=== PATIENT | female | born 1970 | race Caucasian/White ===

== ENCOUNTER 2016-07-03 19:31 | Emergency (ER) | payer SELFPAY ==
[2016-07-03 19:48] VITALS: TEMP 97.7; BMI 23.2
--- NOTE | 2016-07-03 20:23 | PDOC ---
History of Present Illness - General Chief Complaint: Psychiatric Stated Complaint: DETOX Time Seen by Provider: 07/03/16 19:48 History Source: Patient Exam Limitations: No Limitations Past History - Past Medical History Allergies/Adverse Reactions: Allergies No Known Allergies Allergy (Verified 07/03/16 19:43) Home Medications: Ambulatory Orders NK [No Known Home Medication] 07/03/16 - Social History Smoking Status: Former smoker *Review of Systems - Review of Systems Able to Perform ROS?: Yes Comments:: 07/03/16 20:21 CONSTITUTIONAL: Absent: fever, chills, diaphoresis, generalized weakness, malaise, loss of appetite HEENT: Absent: rhinorrhea, nasal congestion, throat pain, throat swelling, difficulty swallowing, mouth swelling, ear pain, eye pain, visual Changes CARDIOVASCULAR: Absent: chest pain, loss of consciousness, palpitations, irregular heart rate, peripheral edema RESPIRATORY: Absent: cough, shortness of breath, dyspnea with exertion, orthopnea, wheezing, stridor, hemoptysis GASTROINTESTINAL: Absent: abdominal pain, abdominal distension, nausea, vomiting, diarrhea, constipation, melena, hematochezia GENITOURINARY: Absent: dysuria, frequency, urgency, hesitancy, hematuria, flank pain, genital pain MUSCULOSKELETAL: Absent: myalgia, arthralgia, joint swelling SKIN: Absent: rash, itching, pallor HEMATOLOGIC/IMMUNOLOGIC: Absent: easy bleeding, easy bruising, lymphadenopathy, frequent infections ENDOCRINE: Absent: unexplained weight gain, unexplained weight loss, heat intolerance, cold intolerance NEUROLOGIC: Absent: headache, focal weakness or paresthesias, dizziness, unsteady gait, seizure, mental status changes, bladder or bowel incontinence PSYCHIATRIC: Absent: anxiety, depression, suicidal or homicidal ideation, hallucinations. *Physical Exam - Vital Signs Last Vital Signs Temp Pulse Resp BP Pulse Ox 97.7 F 62 19 114/76 93 L 07/03/16 19:39 07/03/16 19:39 07/03/16 19:39 07/03/16 19:39 07/03/16 19:39 - Physical Exam Comments: 07/03/16 20:21 GENERAL: Well developed, well nourished. Awake and alert. No acute distress. HEENT: Normocephalic, atraumatic. PERRLA, EOMI. No conjunctival pallor. Sclera are non- icteric. Moist mucous membranes. Oropharynx is clear. NECK: Supple. Full ROM. No JVD. Carotid pulses 2+ and symmetric, without bruits. No thyromegaly. No lymphadenopathy. CARDIOVASCULAR: Regular rate and rhythm. No murmurs, rubs, or gallops. Distal pulses are 2+ and symmetric. PULMONARY: No evidence of respiratory distress. Lungs clear to auscultation bilaterally. No wheezing, rales or rhonchi. ABDOMINAL: Soft. Non-tender. Non-distended. No rebound or guarding. No organomegaly. Normoactive bowel sounds. MUSCULOSKELETAL Normal range of motion at all joints. No bony deformities or tenderness. No CVA tenderness. EXTREMITIES: No cyanosis. No clubbing. No edema. No calf tenderness. SKIN: Warm and dry. Normal capillary refill. No rashes. No jaundice. NEUROLOGICAL: Alert, awake, appropriate. Cranial nerves 2-12 intact. No deficits to light touch and temperature in face, upper extremities and lower extremities. No motor deficits in the in face, upper extremities and lower extremities. Normoreflexic in the upper and lower extremities. Normal speech. Toes are down- going bilaterally. Gait is normal without ataxia. PSYCHIATRIC: Cooperative. Good eye contact. Appropriate mood and affect. Plan - Order(s) Order(s): Orders Medication Instructions Recorded NK [No Known Home Medication] 07/03/16 - Laboratory CBC & Chemistry Diagram: 07/03/16 20:44 07/03/16 20:40 *DC/Admit/Observation/Transfer Diagnosis at time of Disposition: Narcotic abuse - Discharge Dispostion Disposition: I.P. ALCOHOL/SUBS ABUSE REHAB Condition at time of disposition: Stable - Patient Instructions Printed Discharge Instructions: DI for Opioid Addiction Progress Note - Progress Note Progress Note: 45-year-old female with a history of IVDA presents to the emergency department requesting for heroin detox. Patient states she usually uses a bundle of heroin per day (10 bags=1 bundle). Last use: IVDA/heroin/last evening. Patient denies any headache, dizziness, lightheadedness, visual disturbance, blurry vision, neck pains, back pains, chest pain, palpitation, shortness of breath, abdominal pains, urinary symptoms. 2215hrs: Spoke to SWEE[facility]O asst, states to have security bring pt over to [email or web address]
--- NOTE | 2016-07-03 20:36 | PDOC ---
[id number] 93 L 07/03/16 19:39 07/03/16 19:39 07/03/16 19:39 07/03/16 19:39 07/03/16 19:39 ED Treatment Course - LABORATORY CBC & Chemistry Diagram: 07/03/16 20:44 07/03/16 20:40 Medical Decision Making - Medical Decision Making 07/03/16 20:35 Pt seen by the Advanced Practice Provider under my direct supervision Ancillary studies reviewed I agree with plan as outlined by the Advanced Practice Provider SHANDA Lopez *DC/Admit/Observation/Transfer Diagnosis at time of Disposition: Narcotic abuse - Discharge Dispostion Disposition: I.P. ALCOHOL/SUBS ABUSE REHAB Condition at time of disposition: Stable - Patient Instructions Printed Discharge Instructions: DI for Opioid Addiction
[2016-07-03 21:03] LABS: URINE APPEARANCE SLCLOUDY; URINE BILIRUBIN NEGATIVE (NEGATIVE); URINE BLOOD NEGATIVE (NEGATIVE); URINE COLOR AMBER; URINE GLUCOSE (UA) NEGATIVE (NEGATIVE); URINE KETONE TRACE (NEGATIVE); URINE LEUK ESTERASE NEGATIVE (NEGATIVE); URINE NITRITE NEGATIVE (NEGATIVE); URINE UROBILINOGEN 4.0 E.U/dl E.U./dl (0.2-1.0)
[2016-07-03 21:03] LABS: BASOPHIL 0.5 % (0-2.0); EOSINOPHIL 1.1 % (0-4.5); MCH 24.7 pg (25.7-33.7); MCHC 32.4 g/dl (32.0-36.0); MEAN CELL VOLUME 76.3 fl (80-96); MEAN PLT VOLUME 7.9 fl (7.5-11.1); NEUTROPHILS 74.8 % (42.8-82.8); PLATELET COUNT 184 K/MM3 (134-434); RDW 15.3 % (11.6-15.6); WHITE BLOOD COUNT 5.1 K/mm3 (4.0-10.0)
[2016-07-03 21:05] LABS: URINE PROTEIN 1+ (NEGATIVE)
[2016-07-03 21:06] LABS: URINE MUCUS MANY; URINE RBC 2 /hpf (0-3); URINE WBC 3 /hpf (3-5)
[2016-07-03 21:22] LABS: URINE MARIJUANA THC NEGATIVE ng/ml (CUTOFF=50)
[2016-07-03 21:48] LABS: ALBUMIN 3.2 g/dl (3.4-5.0); ANION GAP 7 (8-16); BILIRUBIN,TOTAL 0.3 mg/dL (0.2-1.0); CALCIUM 8.9 mg/dL (8.5-10.1); CO2 29 mmol/L (21-32); CREATININE 0.7 mg/dL (0.55-1.02); GLUCOSE,RANDOM 105 mg/dL (74-106); SGOT/AST 22 U/L (15-37); SGPT/ALT 25 U/L (12-78); TOT PROT 7.5 g/dl (6.4-8.2)
[2016-07-03 21:49] LABS: ALK PHOS 72 U/L (45-117)
[2016-07-03 22:12] VITALS: BP 116/69; PULSE 68
--- NOTE | 2016-07-05 21:48 | EKG ---
Test Reason : Blood Pressure : / mmHG Vent. Rate : 066 BPM Atrial Rate : 066 BPM P-R Int : 168 ms QRS Dur : 078 ms QT Int : 414 ms P-R-T Axes : 072 058 049 degrees QTc Int : 434 ms NORMAL SINUS RHYTHM NORMAL ECG NO PREVIOUS ECGS AVAILABLE Confirmed by INGRID HARMAN MD ([id number]) on 07/05/2016 9:47:46 PM Referred By: Confirmed By:INGRID HARMAN MD
== END 2016-07-03 22:46 | disposition other institution (70) ==
LOC: JER 19:31
DX: F11.20 Opioid dependence, uncomplicated (principal)
CPT/HCPCS: 36415; 80053; 80307; 81003; 81015; 84703; 85025; 93005; 93010; 99282-25

== ENCOUNTER 2016-07-03 23:42 | Inpatient (IN) | payer SELFPAY ==
--- NOTE | 2016-07-04 00:39 | HP ---
COWS - Scale Resting Pulse: 0= [place] 80 or Below Sweatin=Flushed/Facial Moisture Restless Observation: 1= Difficult to Sit Still Pupil Size: 0= Normal to Room Light Bone or Joint Aches: 1= Mild Discomfort Runny Nose/ Eye Tearin= Runny Nose/Eyes GI Upset > 30mins: 2= Nausea/Diarrhea Tremor Observation: 1= Tremor [place], Not Seen Yawning Observation: 2= >3x During Session Anxiety or Irritability: 1=Feels Anxious/Irritable Goose Flesh Skin: 3=Piloerection COWS Score: 15 Admission ROS S - HPI Chief Complaint: WITHDRAWAL SYMPTOMS Allergies/Adverse Reactions: Allergies Allergy/AdvReac Type Severity Reaction Status Date / Time No Known Allergies Allergy Verified 07/03/16 19:43 History of Present Illness: 45 Y.O. FEMALE WITH AN EXTENSIVE HISTORY OF DRUG DEPENDENCE IS SEEKING DETOX. SHE PREVIOUSLY COMPLETED DETOX AND REHAB At ANOTHER FACILITY. SHE REPORTS SHE DOES NOT HAVE A SIGNIFICANT PERIOD OF SOBRIETY. Exam Limitations: No Limitations - Ebola screening Have you traveled outside of the country in the last 21 days: No (N) Have you had contact with anyone from an Ebola affected area: No Do you have a fever: No - Review of Systems Constitutional: Chills, Loss of Appetite, Night Sweats, Changes in sleep EENT: reports: Tearing Respiratory: reports: Shortness of Breath Cardiac: reports: No Symptoms Reported GI: reports: No Symptoms Reported : reports: No Symptoms Reported Musculoskeletal: reports: Joint Pain Integumentary: reports: Other (TRACK [place]) Neuro: reports: Tremors Endocrine: reports: No Symptoms Reported Hematology: reports: No Symptoms Reported Psychiatric: reports: Orientated x3 Other Systems: Reviewed and Negative Patient History - Patient Medical History Hx Anemia: No Hx Asthma: Yes Hx Chronic Obstructive Pulmonary Disease (COPD): No Hx Cancer: No Hx Cardiac Disorders: No Hx Congestive Heart Failure: No Hx Hypertension: No Hx Hypercholesterolemia: No Hx Pacemaker: No HX Cerebrovascular Accident: No Hx Seizures: No Hx Dementia: No Hx Diabetes: No Hx Gastrointestinal Disorders: No Hx Liver Disease: No Hx Genitourinary Disorders: No Hx Sexually Transmitted Disorders: No Hx Renal Disease (ESRD): No Hx Thyroid Disease: No Hx Human Immunodeficiency Virus (HIV): No Hx Hepatitis C: No Hx Depression: Yes Hx Suicide Attempt: No Hx Bipolar Disorder: Yes Hx Schizophrenia: No - Patient Surgical History Past Surgical History: No - PPD History Previous Implant?: No Documented Results: Negative w/o proof PPD to be Administered?: Yes - Reproductive History Patient is a Female of Child Bearing Age (11 -55 yrs old): Yes Last Menstrual Period: 06/23/16 Patient : No - Smoking Cessation Smoking history: Former smoker Have you smoked in the past 12 months: No Initiated information on smoking cessation: Yes 'Breaking Loose' booklet given: 07/04/16 - Substance & Tx. History Hx Alcohol Use: No Hx Substance Use: Yes Substance Use Type: Cocaine, Opiates Hx Substance Use Treatment: Yes (DETOX AND REHAB ) - Substances Abused Heroin Route: Injection Frequency: Daily Amount used: 10 BAGS Age of first use: 43 Date of Last Use: 07/03/16 Cocaine Route: Injection Frequency: 3-6 times per week Amount used: 1/2 BAG Age of first use: 23 Date of Last Use: 07/03/16 Family Disease History - Family Disease History Family Disease History: [place]: Grandparent, Other: Father (ETOH DEPENDENCE ), Brother (HEROIN DEPENDENCE ), Sister (ETOH DEPENDENCE ) Admission Physical Exam BHS - Vital Signs Vital Signs: Last Vital Signs Temp Pulse Resp BP Pulse Ox 97.2 F L 73 16 93/69 07/04/16 02:03 07/04/16 02:03 07/04/16 02:03 07/04/16 02:03 - Physical General Appearance: Yes: Disheveled, Tremorous, Irritable, Anxious HEENTM: Yes: Hearing grossly Normal, Normocephalic, Normal Voice Respiratory: Yes: Chest Non-Tender, Lungs Clear, Normal Breath Sounds, No Respiratory Distress, No Accessory Muscle Use Neck: Yes: No masses,lesions,Nodules, Trachea in good position Breast: Yes: Breast Exam Deferred Cardiology: Yes: Regular Rhythm, Regular Rate, S1, S2 Abdominal: Yes: Normal Bowel Sounds, Non Tender, Flat, Soft Genitourinary: Yes: Within Normal Limits Back: Yes: Normal Inspection Musculoskeletal: Yes: Gait Steady Extremities: Yes: Normal Inspection, Normal Range of Motion, Non-Tender Neurological: Yes: Fully Oriented, Alert, Normal Response Integumentary: Yes: Track [place] Lymphatic: Yes: Within Normal Limits - Diagnostic (1) Opioid dependence with withdrawal Current Visit: Yes Status: Chronic (2) Cocaine dependence, uncomplicated Current Visit: Yes Status: Chronic (3) Asthma Current Visit: Yes Status: Chronic Cleared for Admission S - Detox or Rehab [facility] Level of Care: Medically Managed Detox Regimen/Protocol: Methadone S Breath Alcohol Content Breath Alcohol Content: 0 Vital Signs - Vital Signs Vital Signs Refused: No Temperature: 97.2 F Temperature Source: Oral Pulse Rate: 73 Respiratory Rate: 16 Blood Pressure: 93/69 BP Location: Left Arm Blood Pressure Position: Sitting - Height Height: 5 ft 1 in - Weight Weight: 124 lb Weight Measurement Method: Standing Scale Body Mass Index (BMI): 23.4 Urine Pregancy Test - Test Device Lot Number: [id number] Expiration Date: 11/30/17 - Control Horizontal Line in Upper Control Window?: Yes - Result Urine Test Results: Negative- NO Line Present Urine Drug Screen - Test Device Lot Number: [id number] Expiration Date: 12/31/16 - Control Is Test Valid: Yes - Results Urine Drug Screen Results: ANABELLE-Cocaine, OXY-Oxycodone
[2016-07-04 00:51] VITALS: BMI 23.4
[2016-07-04] MEDS ORDERED: guaiFENesin/D-METHORPHAN HB 10 ML UNIT-DOSE CUPS PO PRN (01:11)
[2016-07-04] MEDS ORDERED: MENTHOL/PHENOL 1 EACH UD MM PRN (01:11)
[2016-07-04] MEDS ORDERED: MAGNESIUM CITRATE 300 ML BOTTLE PO PRN (01:11)
[2016-07-04] MEDS ORDERED: ACETAMINOPHEN 325 MG TABLET (FP) PO PRN (01:11)
[2016-07-04] MEDS ORDERED: P-EPHED 60MG/TRIPROLIDI 2.5MG TABLET PO PRN (01:11)
[2016-07-04] MEDS ORDERED: METHADONE HCL 10 MG TABLET (FOR DETOX USE ONLY) PO ONE ×3 (01:11→23:00)
[2016-07-04] MEDS ORDERED: IBUPROFEN 400 MG TABLET (FP) PO PRN (01:11)
[2016-07-04] MEDS ORDERED: MAG HYDROX/AL HYDROX/SIMETH 30 ML UNIT-DOSE CUP PO PRN (01:11)
[2016-07-04] MEDS ORDERED: LOPERAMIDE HCL 2 MG CAPSULE PO PRN (01:11)
[2016-07-04] MEDS ORDERED: MAGNESIUM HYDROX 2400MG/30ML ORAL SUSPENSION 30 ML CUP PO PRN (01:11)
[2016-07-04] MEDS ORDERED: ALBUTEROL SO4 6.7 GM HFA INHALER IH PRN (01:13)
--- NOTE | 2016-07-04 08:45 | PN ---
BHS COWS - Scale Resting Pulse: 0= [place] 80 or Below Sweatin=Flushed/Facial Moisture Restless Observation: 3= Extraneous Movement Pupil Size: 1= Pupils >than Normal Bone or Joint Aches: 2= Severe Diffuse Aches Runny Nose/ Eye Tearin= Runny Nose/Eyes GI Upset > 30mins: 3= Vomiting/Diarrhea Tremor Observation of Outstretched Hands: 2= Slight Tremor Visible Yawning Observation: 1= 1-2x During Session Anxiety or Irritability: 2=Irritable/Anxious Goose Flesh Skin: 0=Smooth Skin COWS Score: 18 BHS Progress Note (SOAP) Subjective: ALERT,IRRITABLE,ANXIOUS,SWEATING,PAIN IN THE BODY AND BACK,TREMOR,INTERRUPTED SLEEP Objective: 07/04/16 08:44 Vital Signs Temperature 97.6 F 07/04/16 06:18 Pulse Rate 77 07/04/16 06:18 Respiratory Rate 18 07/04/16 06:18 Blood Pressure 112/63 07/04/16 06:18 O2 Sat by Pulse Oximetry (%) 07/04/16 08:44 EKG NSR WITH SINUS ARRHYTHMIA LABS PENDING Assessment: 07/04/16 08:45 WITHDRAWAL SYMPTOM Plan: CONTINUE DETOX
[2016-07-04] MEDS: diazePAM 5 MG TABLET PO PRN (10:01)
[2016-07-04] MEDS: PRENATAL VITAMINS W/ FOLIC ACID TABLET (FP) PO SCH (10:01)
[2016-07-04 17:41] LABS: URINE APPEARANCE SLCLOUDY; URINE BLOOD NEGATIVE (NEGATIVE); URINE COLOR AMBER; URINE GLUCOSE (UA) NEGATIVE (NEGATIVE); URINE KETONE NEGATIVE (NEGATIVE); URINE LEUK ESTERASE NEGATIVE (NEGATIVE); URINE NITRITE NEGATIVE (NEGATIVE); URINE UROBILINOGEN 4.0 E.U/dl E.U./dl (0.2-1.0)
[2016-07-04 17:50] LABS: URINE PROTEIN 1+ (NEGATIVE)
[2016-07-04 18:10] LABS: CALCIUM OXALATE CRYSTALS FEW /hpf (NONE SEEN); URINE MUCUS MANY; URINE RBC 3 /hpf (0-3); URINE WBC 3 /hpf (3-5)
[2016-07-04] MEDS: hydrOXYzine PAMOATE 50 MG CAPSULE (FP) PO PRN (22:08)
[2016-07-04] MEDS: THIAMINE HCL 100 MG TABLET (FP) PO SCH (22:09)
--- NOTE | 2016-07-05 09:27 | PN ---
S COWS - Scale Resting Pulse: 0= [place] 80 or Below Sweatin=Flushed/Facial Moisture Restless Observation: 3= Extraneous Movement Pupil Size: 1= Pupils >than Normal Bone or Joint Aches: 2= Severe Diffuse Aches Runny Nose/ Eye Tearin= Runny Nose/Eyes GI Upset > 30mins: 2= Nausea/Diarrhea Tremor Observation of Outstretched Hands: 2= Slight Tremor Visible Yawning Observation: 1= 1-2x During Session Anxiety or Irritability: 2=Irritable/Anxious Goose Flesh Skin: 0=Smooth Skin COWS Score: 17 S Progress Note (SOAP) Subjective: ALERT,IRRITABLE,ANXIOUS,INTERRUPTED SLEEP,PAIN IN THE BODY AND BACK Objective: 07/05/16 09:26 Vital Signs Temperature 97.1 F L 07/05/16 06:25 Pulse Rate 74 07/05/16 06:25 Respiratory Rate 18 07/05/16 06:25 Blood Pressure 104/89 07/05/16 06:25 O2 Sat by Pulse Oximetry (%) Laboratory Last Values Urine Color [place] 07/04/16 Unknown Urine Appearance Slcloudy 07/04/16 Unknown Urine pH 6.0 (5.0-8.0) 07/04/16 Unknown Ur Specific [place] 1.027 (1.001-1.035) 07/04/16 Unknown Urine Protein 1+ (NEGATIVE) H 07/04/16 Unknown Urine Glucose (UA) Negative (NEGATIVE) 07/04/16 Unknown Urine Ketones Negative (NEGATIVE) 07/04/16 Unknown Urine Blood Negative (NEGATIVE) 07/04/16 Unknown Urine Nitrite Negative (NEGATIVE) 07/04/16 Unknown Urine Bilirubin 2.0 (NEGATIVE) 07/04/16 Unknown Urine Urobilinogen 4.0 e.u/dl E.U./dl (0.2-1.0) H 07/04/16 Unknown Ur Leukocyte Esterase Negative (NEGATIVE) 07/04/16 Unknown Urine RBC 3 /hpf (0-3) 07/04/16 Unknown Urine WBC 3 /hpf (3-5) 07/04/16 Unknown Ur Epithelial Cells Moderate /hpf (FEW) 07/04/16 Unknown Calcium Oxalate Crystal Few /hpf (NONE SEEN) 07/04/16 Unknown Urine Mucus Many 07/04/16 Unknown LABS PENDING Assessment: 07/05/16 09:27 WITHDRAWAL SYMPTOM Plan: CONTINUE DETOX
[2016-07-05] MEDS ORDERED: METHADONE HCL 10 MG TABLET (FOR DETOX USE ONLY) PO ONE (10:00)
[2016-07-05 10:19] LABS: MCH 24.8 pg (25.7-33.7); MCHC 32.5 g/dl (32.0-36.0); MEAN CELL VOLUME 76.3 fl (80-96); MEAN PLT VOLUME 8.1 fl (7.5-11.1); PLATELET COUNT 206 K/MM3 (134-434); RDW 15.9 % (11.6-15.6); WHITE BLOOD COUNT 4.8 K/mm3 (4.0-10.0)
[2016-07-05] MEDS: PRENATAL VITAMINS W/ FOLIC ACID TABLET (FP) PO SCH (10:22)
[2016-07-05] MEDS: diazePAM 5 MG TABLET PO PRN ×2 (10:23→22:05)
[2016-07-05 10:52] LABS: ALBUMIN 3.2 g/dl (3.4-5.0); ALK PHOS 66 U/L (45-117); ANION GAP 10 (8-16); BILIRUBIN,TOTAL 0.3 mg/dL (0.2-1.0); CALCIUM 9.2 mg/dL (8.5-10.1); CO2 27 mmol/L (21-32); CREATININE 0.7 mg/dL (0.55-1.02); GLUCOSE,RANDOM 99 mg/dL (74-106); SGOT/AST 25 U/L (15-37); SGPT/ALT 23 U/L (12-78); TOT PROT 7.2 g/dl (6.4-8.2)
[2016-07-05] MEDS: THIAMINE HCL 100 MG TABLET (FP) PO SCH (22:04)
--- NOTE | 2016-07-05 22:39 | EKG ---
Test Reason : Blood Pressure : / mmHG Vent. Rate : 062 BPM Atrial Rate : 062 BPM P-R Int : 178 ms QRS Dur : 080 ms QT Int : 416 ms P-R-T Axes : 075 070 057 degrees QTc Int : 422 ms NORMAL SINUS RHYTHM WITH SINUS ARRHYTHMIA POSSIBLE LEFT ATRIAL ENLARGEMENT BORDERLINE ECG WHEN COMPARED WITH ECG OF 03-JUL-2016 21:03, NO SIGNIFICANT CHANGE WAS FOUND Confirmed by KIMANI CASTELLANO, INGRID ([id number]) on 07/05/2016 10:38:55 PM Referred By: Confirmed By:INGRID HARMAN MD
[2016-07-05] MEDS: diphenhydrAMINE HCL 50 MG CAPSULE PO PRN (23:54)
[2016-07-06] MEDS: diphenhydrAMINE HCL 50 MG CAPSULE PO PRN ×2 (01:03→22:33)
--- NOTE | 2016-07-06 09:45 | CONSULT ---
[facility] Psychiatric Consult - Data Date of interview: 07/06/16 Admission source: [facility] Identifying data: This is 45 years old female with no psychiatric hospitalization history intoxzuicated with: Cocaine amd Heroin Substance Abuse History: - Smoking Cessation. Smoking history: Former smoker. Have you smoked in the past 12 months: No. Initiated information on smoking cessation: Yes. 'Breaking Loose' booklet given: 07/04/16. - Substance & Tx. History. Hx Alcohol Use: No. Hx Substance Use: Yes. Substance Use Type: Cocaine, Opiates. Hx Substance Use Treatment: Yes (DETOX AND REHAB ). - Substances Abused. Heroin. Route: Injection. Frequency: Daily. Amount used: 10 BAGS. Age of first use: 43. Date of Last Use: 07/03/16. Cocaine. Route: Injection. Frequency: 3-6 times per week. Amount used: 1/2 BAG. Age of first use: 23. Date of Last Use: 07/03/16 Medical History: Asthma Psychiatric History: Patient reports history [id number] depression and anxiety, reports insomnia,m reports good response on Seroquel 100mg po qhs prior Physical/Sexual Abuse/Trauma History: Denies Additional Comment: Seroquel 100mg po qhs Mental Status Exam - Mental Status Exam Cognitive Function: Fair Patient Appearance: Unkempt Mood: Sad Affect: Flat Patient Behavior: Sedated Speech Pattern: Delayed Voice Loudness: Mildly Soft/Quiet Thought Process: Circumstantial Thought Disorder: Being Controlled Hallucinations: Denies Suicidal Ideation: Denies Homicidal Ideation: Denies Insight/Judgement: Fair Sleep: Difficulty falling asleep Appetite: Weight loss Muscle strength/Tone: Normal Gait/Station: Shuffling Additional Comments: Seroquel 100mg po qhs Psychiatric Findings - Problem List ([place] 1, 2,3) (1) Cocaine dependence, uncomplicated Current Visit: Yes Status: Chronic (2) Opioid dependence with withdrawal Current Visit: Yes Status: Chronic (3) Drug-induced mood disorder Current Visit: Yes Status: Acute - Initial Treatment Plan Initial Treatment Plan: Seroquel 100mg po qhs
--- NOTE | 2016-07-06 09:49 | PN ---
BHS Progress Note (SOAP) Subjective: restless legs sweats shakes interrupted sleep body aches Objective: 07/06/16 09:45 Vital Signs Temperature 97.5 F L 07/06/16 06:00 Pulse Rate 67 07/06/16 06:00 Respiratory Rate 18 07/06/16 06:00 Blood Pressure 105/61 07/06/16 06:00 O2 Sat by Pulse Oximetry (%) Laboratory Tests 07/04/16 07/05/16 07/05/16 Unknown 08:00 08:00 WBC 4.8 RBC 4.62 Hgb 11.5 Hct 35.2 MCV 76.3 L MCHC 32.5 RDW 15.9 H Plt Count 206 MPV 8.1 Sodium 142 Potassium 3.8 Chloride 105 Carbon Dioxide 27 Anion Gap 10 BUN 11 D Creatinine 0.7 Creat Clearance w eGFR > 60 Random Glucose 99 Calcium 9.2 Total Bilirubin 0.3 AST 25 ALT 23 Alkaline Phosphatase 66 Total Protein 7.2 Albumin 3.2 L Urine Color [place] Urine Appearance Slcloudy Urine pH 6.0 Ur Specific [place] 1.027 Urine Protein 1+ H Urine Glucose (UA) Negative Urine Ketones Negative Urine Blood Negative Urine Nitrite Negative Urine Bilirubin 2.0 Urine Urobilinogen 4.0 e.u/dl H Ur Leukocyte Esterase Negative Urine RBC 3 Urine WBC 3 Ur Epithelial Cells Moderate Calcium Oxalate Crystal Few Urine Mucus Many RPR Titer 07/05/16 08:00 WBC RBC Hgb Hct MCV MCHC RDW Plt Count MPV Sodium Potassium Chloride Carbon Dioxide Anion Gap BUN Creatinine Creat Clearance w eGFR Random Glucose Calcium Total Bilirubin AST ALT Alkaline Phosphatase Total Protein Albumin Urine Color Urine Appearance Urine pH Ur Specific [place] Urine Protein Urine Glucose (UA) Urine Ketones Urine Blood Urine Nitrite Urine Bilirubin Urine Urobilinogen Ur Leukocyte Esterase Urine RBC Urine WBC Ur Epithelial Cells Calcium Oxalate Crystal Urine Mucus RPR Titer Nonreactive awake/alert ambulating no acute distress Assessment: 07/06/16 09:47 withdrawal sx Plan: continue detox increase fluids flexiril 10mg prn motrin 800mg tid
[2016-07-06] MEDS ORDERED: METHADONE HCL 5 MG TABLET (FOR DETOX USE ONLY) PO ONE (10:00)
[2016-07-06] MEDS: PRENATAL VITAMINS W/ FOLIC ACID TABLET (FP) PO SCH (10:05)
[2016-07-06] MEDS: THIAMINE HCL 100 MG TABLET (FP) PO SCH (22:33)
[2016-07-06] MEDS: QUEtiapine FUMARATE 100 MG TABLET (FP) PO SCH (22:33)
[2016-07-06] MEDS: CYCLOBENZAPRINE HCL 10 MG TABLET (FP) PO PRN (23:32)
[2016-07-07] MEDS: diazePAM 5 MG TABLET PO PRN (00:31)
[2016-07-07] MEDS: diphenhydrAMINE HCL 50 MG CAPSULE PO PRN (01:08)
[2016-07-07] MEDS: IBUPROFEN 400 MG TABLET (FP) PO PRN (01:08)
[2016-07-07] MEDS ORDERED: METHADONE HCL 5 MG TABLET (FOR DETOX USE ONLY) PO ONE (10:00)
[2016-07-07] MEDS: PRENATAL VITAMINS W/ FOLIC ACID TABLET (FP) PO SCH (10:08)
--- NOTE | 2016-07-07 11:41 | PN ---
BHS Progress Note (SOAP) Subjective: interrupted sleep, sweats Objective: 07/07/16 11:38 Vital Signs Temperature 98.1 F 07/07/16 09:47 Pulse Rate 74 07/07/16 09:47 Respiratory Rate 18 07/07/16 09:47 Blood Pressure 120/64 07/07/16 09:47 O2 Sat by Pulse Oximetry (%) Laboratory Tests 07/04/16 07/05/16 07/05/16 Unknown 08:00 08:00 WBC 4.8 RBC 4.62 Hgb 11.5 Hct 35.2 MCV 76.3 L MCHC 32.5 RDW 15.9 H Plt Count 206 MPV 8.1 Sodium Potassium Chloride Carbon Dioxide Anion Gap BUN Creatinine Creat Clearance w eGFR Random Glucose Calcium Total Bilirubin AST ALT Alkaline Phosphatase Total Protein Albumin Urine Color [place] Urine Appearance Slcloudy Urine pH 6.0 Ur Specific [place] 1.027 Urine Protein 1+ H Urine Glucose (UA) Negative Urine Ketones Negative Urine Blood Negative Urine Nitrite Negative Urine Bilirubin 2.0 Urine Urobilinogen 4.0 e.u/dl H Ur Leukocyte Esterase Negative Urine RBC 3 Urine WBC 3 Ur Epithelial Cells Moderate Calcium Oxalate Crystal Few Urine Mucus Many RPR Titer Hepatitis C Antibody 0.2 07/05/16 07/05/16 08:00 08:00 WBC RBC Hgb Hct MCV MCHC RDW Plt Count MPV Sodium 142 Potassium 3.8 Chloride 105 Carbon Dioxide 27 Anion Gap 10 BUN 11 D Creatinine 0.7 Creat Clearance w eGFR > 60 Random Glucose 99 Calcium 9.2 Total Bilirubin 0.3 AST 25 ALT 23 Alkaline Phosphatase 66 Total Protein 7.2 Albumin 3.2 L Urine Color Urine Appearance Urine pH Ur Specific [place] Urine Protein Urine Glucose (UA) Urine Ketones Urine Blood Urine Nitrite Urine Bilirubin Urine Urobilinogen Ur Leukocyte Esterase Urine RBC Urine WBC Ur Epithelial Cells Calcium Oxalate Crystal Urine Mucus RPR Titer Nonreactive Hepatitis C Antibody pt aox3 in nad ambulating Assessment: 07/07/16 11:40 withdrawal sx's Plan: cont. detox increase fluids
[2016-07-07] MEDS: THIAMINE HCL 100 MG TABLET (FP) PO SCH (22:19)
[2016-07-07] MEDS: QUEtiapine FUMARATE 100 MG TABLET (FP) PO SCH (22:19)
[2016-07-07] MEDS: CYCLOBENZAPRINE HCL 10 MG TABLET (FP) PO PRN (22:21)
[2016-07-08] MEDS ORDERED: METHADONE HCL 10 MG TABLET (FOR DETOX USE ONLY) PO ONE (10:00)
[2016-07-08] MEDS: PRENATAL VITAMINS W/ FOLIC ACID TABLET (FP) PO SCH (10:13)
--- NOTE | 2016-07-08 10:24 | PN ---
BHS Progress Note (SOAP) Subjective: sweats interrupted sleep Objective: 07/08/16 10:28 Vital Signs Temperature 97.9 F 07/08/16 10:09 Pulse Rate 77 07/08/16 10:09 Respiratory Rate 18 07/08/16 10:09 Blood Pressure 100/73 07/08/16 10:09 O2 Sat by Pulse Oximetry (%) awake/alert ambulating no acute distress Assessment: 07/08/16 10:28 withdrawal sx Plan: continue detox increase fluids d/c in am
[2016-07-08] MEDS: IBUPROFEN 400 MG TABLET (FP) PO PRN (22:07)
[2016-07-08] MEDS: THIAMINE HCL 100 MG TABLET (FP) PO SCH (22:08)
[2016-07-08] MEDS: QUEtiapine FUMARATE 100 MG TABLET (FP) PO SCH (22:08)
[2016-07-08] MEDS: CYCLOBENZAPRINE HCL 10 MG TABLET (FP) PO PRN (22:08)
[2016-07-09] MEDS: diphenhydrAMINE HCL 50 MG CAPSULE PO PRN (01:02)
[2016-07-09] MEDS ORDERED: METHADONE HCL 5 MG TABLET (FOR DETOX USE ONLY) PO ONE (06:00)
[2016-07-09] MEDS: hydrOXYzine PAMOATE 50 MG CAPSULE (FP) PO PRN (06:18)
--- NOTE | 2016-07-09 08:04 | PN ---
S Progress Note (SOAP) Subjective: ALERT,NO COMPLAINT Objective: 07/09/16 08:03 Vital Signs Temperature 97.7 F 07/09/16 06:17 Pulse Rate 64 07/09/16 06:17 Respiratory Rate 16 07/09/16 06:17 Blood Pressure 105/67 07/09/16 06:17 O2 Sat by Pulse Oximetry (%) Assessment: 07/09/16 08:03 DETOX COMPLETED,NO WITHDRAWAL SYMPTOM Plan: DISCHARGE TODAY,FOLLOW UP WITH AFTER CARE PROGRAM ARRANGEMENT
--- NOTE | 2016-07-09 08:08 | DS ---
[facility] Detox Discharge Summary Admission Date: 07/03/16 Discharge Date: 07/09/16 - History Present History: Cocaine Dependence, Opioid Dependence Additional Comments: FOLLOW UP WITH AFTER CARE PROGRAM ARRANGEMENT AND PMD FOR MEDICAL PROBLEM Pertinent Past History: ASTHMA - Physical Exam Results Vital Signs: Vital Signs Temperature 97.7 F 07/09/16 06:17 Pulse Rate 64 07/09/16 06:17 Respiratory Rate 16 07/09/16 06:17 Blood Pressure 105/67 07/09/16 06:17 O2 Sat by Pulse Oximetry (%) Pertinent Admission Physical Exam Findings: WITHDRAWAL SYMPTOM - Treatment Hospital Course: Detox Protocol Followed, Detoxed Safely, Responded well, Discharged Condition Good Patient has Accepted a Rehab Referral to: DECLINED - Medication Discharge Medications: Ambulatory Orders Albuterol Sulfate Inhaler - [Ventolin HFA Inhaler -] 1 puff IH Q4H PRN 07/04/16 Quetiapine Fumarate [Seroquel] 100 mg PO HS #30 tablet 07/06/16 - AMA Did Patient Leave Against Medical Advice: No
[2016-07-09 09:39] VITALS: BP 129/75; PULSE 76; TEMP 98.2
[2016-07-09] MEDS: PRENATAL VITAMINS W/ FOLIC ACID TABLET (FP) PO SCH (11:14)
== END 2016-07-09 08:55 | disposition home or self-care (01) | DRG 773 ==
LOC: YASAS 23:42 → Y6N 23:48
PROVIDERS: ADMIT Internal Medicine; ATTEND Internal Medicine
PROC: HZ2ZZZZ Detoxification Services for Substance Abuse Treatment (ICD-10-PCS; principal; 2016-07-09)
DX: F11.23 Opioid dependence with withdrawal (principal); F14.20 Cocaine dependence, uncomplicated; F19.24 Other psychoactive substance dependence with psychoactive substance-induced mood disorder; J45.909 Unspecified asthma, uncomplicated; Z87.891 Personal history of nicotine dependence
CPT/HCPCS: 36415; 80053; 81003; 81015; 85027; 86593; 93005; 93010